=== PATIENT | female | born 1970 | race Caucasian/White ===

== ENCOUNTER 2016-07-31 16:20 | Inpatient (IN) | payer SELFPAY ==
[~2016-07-31] VITALS: Ht 154.9 cm; Wt 41.1 kg
[~2016-07-31 16:20] MED LIST: CLEO300C2 PO; DOXY100T PO
[2016-07-31 16:28] VITALS: BP 156/81; PULSE 107; RESP 16; TEMP 98.9; O2SAT 98
[2016-07-31] MEDS ORDERED: CELE20TA PO (16:32)
[2016-07-31 16:39] VITALS: O2SAT 97
--- NOTE | 2016-07-31 16:41 | PD ---
HPI Chief Complaint: Seizure Time Seen by Provider: 16:33 Travel History International Travel<30 days: No Contact w/Intl Traveler<30days: No Traveled to known affect area: No History of Present Illness HPI 45-year-old female brought in by ambulance after having had an apparent seizure that was witnessed by her friend. According to the front patient had a generalized seizure that lasted for possibly 5 minutes. The patient was slowly lowered to the ground. She did not sustain any injuries during this seizure. No tongue biting or urinary incontinence. She reports that she had a similar episode about 5 years ago. Chart review shows that in 2010 the patient had an emergency department visit for what was thought to be an alcohol withdrawal seizure. The patient never followed up for this as an outpatient. She admits to drinking about 5 beers daily, and states that she had 2 beers today, last drink was at 11 AM. No illicit drug use. No head neck or back pain. No fevers or recent illness. PFSH Past Medical History Depression: Yes Cardiovascular Problems: No Endocrine: No Genitourinary: No Immune Disorder: No Musculoskeletal: No Neurologic: No Respiratory: No Seizures: No Tetanus Vaccination: > 5 Years Influenza Vaccination: No ?: Not Past Surgical History Abdominal Surgery: Yes (appendix 13 yrs old) Appendectomy: Yes Other Surgery: Yes Social History Alcohol Use: Yes (5 BEERS DAILY) Tobacco Use: Yes (/4 PPD) Substance Use: No Allergies-Medications (Allergen,Severity, Reaction): Coded Allergies: No Known Allergies (Verified , 07/31/16) Reported Meds & Prescriptions Reported Meds & Active Scripts Active Reported Celexa (Citalopram Hydrobromide) 20 Mg Tab 20 Mg PO DAILY Review of Systems Except as stated in HPI: all other systems reviewed are Neg Physical Exam Narrative GENERAL: Well-developed, well-nourished, awake, alert, no apparent distress SKIN: Focused skin assessment warm/dry. No lacerations, abrasions, or ecchymosis. HEAD: Atraumatic. Normocephalic. EYES: Pupils equal and round. No scleral icterus. No injection or drainage. ENT: Mucous membranes pink and moist. NECK: Trachea midline. No JVD. No nuchal rigidity. CARDIOVASCULAR: Regular rate and rhythm. RESPIRATORY: No accessory muscle use. Clear to auscultation. Breath sounds equal bilaterally. GASTROINTESTINAL: Abdomen soft, non-tender, nondistended. MUSCULOSKELETAL: No obvious deformities. No clubbing. No cyanosis. No edema. NEUROLOGICAL: Awake and alert. No obvious cranial nerve deficits. Motor grossly within normal limits. Normal speech. PSYCHIATRIC: Appropriate mood and affect; insight and judgment normal. Data Data Last Documented VS Vital Signs Date Time Temp Pulse Resp B/P Pulse Ox O2 Delivery O2 Flow Rate FiO2 07/31/16 18:24 105 16 131/76 99 Room Air 07/31/16 16:28 98.9 Orders Complete Blood Count With Diff (07/31/16 16:33) Alcohol (Ethanol) (07/31/16 16:33) Drug Screen, Random Urine (07/31/16 16:33) Electrocardiogram (07/31/16 ) Ct Brain W/O Iv Contrast(Rout) (07/31/16 ) Blood Glucose (07/31/16 16:33) Ecg Monitoring (07/31/16 16:33) Iv Access Insert/Monitor (07/31/16 16:33) Oximetry (07/31/16 16:33) Comprehensive Metabolic Panel (07/31/16 16:33) Sodium Chloride 0.9% Flush (Ns Flush) (07/31/16 16:45) Urinalysis - C+S If Indicated (07/31/16 16:33) Beta Hcg (Quant/Titer) (07/31/16 16:33) Sodium Chlor 0.9% 1000 Ml Inj (Ns 1000 M (07/31/16 16:45) Lorazepam Inj (Ativan Inj) (07/31/16 18:30) Labs Laboratory Tests Test 07/31/16 07/31/16 16:40 17:30 White Blood Count 8.4 TH/MM3 Red Blood Count 4.06 MIL/MM3 Hemoglobin 14.2 GM/DL Hematocrit 40.5 % Mean Corpuscular Volume 99.7 FL Mean Corpuscular Hemoglobin 35.1 PG Mean Corpuscular Hemoglobin 35.2 % Concent Red Cell Distribution Width 11.6 % Platelet Count 221 TH/MM3 Mean Platelet Volume 6.6 FL Neutrophils (%) (Auto) 64.1 % Lymphocytes (%) (Auto) 19.2 % Monocytes (%) (Auto) 14.6 % Eosinophils (%) (Auto) 0.7 % Basophils (%) (Auto) 1.4 % Neutrophils # (Auto) 5.4 TH/MM3 Lymphocytes # (Auto) 1.6 TH/MM3 Monocytes # (Auto) 1.2 TH/MM3 Eosinophils # (Auto) 0.1 TH/MM3 Basophils # (Auto) 0.1 TH/MM3 CBC Comment DIFF FINAL Differential Comment Sodium Level 132 MEQ/L Potassium Level 3.3 MEQ/L Chloride Level 94 MEQ/L Carbon Dioxide Level 20.1 MEQ/L Anion Gap 18 MEQ/L Blood Urea Nitrogen 4 MG/DL Creatinine 0.72 MG/DL Estimat Glomerular Filtration 87 ML/MIN Rate Random Glucose 112 MG/DL Calcium Level 8.8 MG/DL Total Bilirubin 0.6 MG/DL Aspartate Amino Transf 231 U/L (AST/SGOT) Alanine Aminotransferase 151 U/L (ALT/SGPT) Alkaline Phosphatase 73 U/L Total Protein 7.7 GM/DL Albumin 3.9 GM/DL Human Chorionic Gonadotropin, 2 MIU/ML Quant Ethyl Alcohol Level LESS THAN 3 MG/DL Urine Color YELLOW Urine Turbidity CLEAR Urine pH 6.0 Urine Specific [place] 1.013 Urine Protein NEG mg/dL Urine Glucose (UA) NEG mg/dL Urine Ketones NEG mg/dL Urine Occult Blood SMALL Urine Nitrite NEG Urine Bilirubin NEG Urine Leukocyte Esterase NEG Urine RBC 0-3 /hpf Urine WBC 0-2 /hpf Urine Squamous Epithelial 0-5 /hpf Cells Urine Bacteria RARE /hpf Urine Mucus FEW /lpf Microscopic Urinalysis Comment CULT NOT INDICATED Urine Opiates Screen NEG Urine Barbiturates Screen NEG Urine Amphetamines Screen NEG Urine Benzodiazepines Screen NEG Urine Cocaine Screen NEG Urine Cannabinoids Screen NEG MDM Medical Decision Making Medical Screen Exam Complete: Yes Emergency Medical Condition: Yes Medical Record Reviewed: Yes Differential Diagnosis Seizure, alcohol withdrawal seizure, metabolic abnormality, intracranial abnormality Narrative Course Initial vital signs show heart rate 107, blood pressure 156/81, pulse ox 98% on room air, oral temp of 98.9F. CBC is essentially unremarkable. CMP shows sodium 132, potassium 3.3, chloride 94, bicarbonate 20.1, anion gap 18 , AST 231, ALT 151. Anion gap metabolic acidosis is likely secondary to lactic acidosis after seizure. Alcohol level is negative. Urine drug screen is negative for all drugs tested. UA is not suggestive of UTI. CT head: Normal exam Patient was made aware of all findings. She was given a liter normal saline, however remains tachycardic and slightly hypertensive. I believe that this was an alcohol withdrawal seizure. Her alcohol level today is 0. She states her last drink was around 11:00 this morning. She now tells me that she has been trying to cut back on her alcohol consumption. She'll be given a dose of Ativan and will be admitted for further treatment and evaluation of alcohol withdrawal seizure. Case discussed with hospitalist Dr. Cameron who will observe the patient overnight and place an order for [facility] protocol Diagnosis Primary Impression: Alcohol withdrawal seizure Qualified Code: F10.230 - Alcohol withdrawal seizure, uncomplicated Admitting Information Admitting Physician Requests: Observation Jose Trinidad MD Jul 31, 2016 16:41
[2016-07-31] MEDS ORDERED: SODIUM CHLORIDE 0.9% FLUSH 10 ML FLUSH IVF PRN (16:45)
[2016-07-31] MEDS ORDERED: SODIUM CHLOR 0.9% 1000 ML INJ 1,000 ML IV ONE (16:45)
[2016-07-31 16:50] LABS: AUTOMATED NEUTROPHIL # 5.4 TH/MM3 (1.8-7.7); BASOPHIL # 0.1 TH/MM3 (0-0.2); BASOPHIL % 1.4 % (0.0-2.0); EOSINOPHIL # 0.1 TH/MM3 (0-0.4); EOSINOPHIL % 0.7 % (0.0-4.0); HEMATOCRIT 40.5 % (35.0-46.0); HEMO FLAGS DIFF FINAL; LYMPH % 19.2 % (9.0-44.0); LYMPHOCYTE # 1.6 TH/MM3 (1.0-4.8); MEAN CELL VOLUME 99.7 FL (80.0-100.0); MEAN CORPUSCULAR HEMOGLOBIN 35.1 PG (27.0-34.0); MEAN CORPUSCULAR HGB CONC 35.2 % (32.0-36.0); MONO % 14.6 % (0.0-8.0); NEUT % 64.1 % (16.0-70.0); PLATELET COUNT 221 TH/MM3 (150-450); RED BLOOD COUNT 4.06 MIL/MM3 (4.00-5.30); RED CELL DISTRIBUTION WIDTH 11.6 % (11.6-17.2); WHITE BLOOD COUNT 8.4 TH/MM3 (4.0-11.0)
[2016-07-31 17:05] LABS: CHLORIDE 94 MEQ/L (98-107); POTASSIUM 3.3 MEQ/L (3.5-5.1); SODIUM (NA) 132 MEQ/L (136-145)
[2016-07-31 17:08] LABS: ANION GAP 18 MEQ/L (5-15); BICARBONATE 20.1 MEQ/L (21.0-32.0)
[2016-07-31 17:11] LABS: ALT (GPT) 151 U/L (10-53); AST (GOT) 231 U/L (15-37)
[2016-07-31 17:12] LABS: GLOMERULAR FILTRATION RATE 87 ML/MIN (>89)
[2016-07-31 17:13] LABS: TOTAL BILIRUBIN ADULT 0.6 MG/DL (0.2-1.0)
[2016-07-31 17:14] LABS: ALKALINE PHOSPHATASE 73 U/L (45-117); BLOOD UREA NITROGEN 4 MG/DL (7-18)
[2016-07-31 17:16] LABS: BETA HCG QUANT 2 MIU/ML (0-5)
[2016-07-31 17:40] LABS: BLOOD, URINE SMALL (NEG); GLUCOSE,URINE NEG (NEG); KETONE, URINE NEG (NEG); NITRITE,URINE NEG (NEG)
[2016-07-31 17:45] LABS: URINE COLOR YELLOW (YELLW/STRAW)
[2016-07-31 17:46] LABS: BACTERIA, URINE RARE /hpf; COMMENT (UR) CULT NOT INDICATED; CULTURE IF INDICATED CULT NOT INDICATED; MUCUS URINE FEW /lpf (OCC); RBC, URINE 0-3 /hpf (0-3); SQUAMOUS EPITHELIAL CELL URINE 0-5 /hpf (0-5); WBC, URINE 0-2 /hpf (0-5)
[2016-07-31 17:47] LABS: AMPHETAMINE, URINE NEG (NEG); BARBITURATES, URINE NEG (NEG); COCAINE, URINE NEG (NEG)
--- NOTE | 2016-07-31 18:21 | RADRPT ---
EXAM DATE/TIME: 07/31/2016 17:39 [place] COMPARISON: No previous studies available for comparison. INDICATIONS : Seizure. RADIATION DOSE: 63.28 CTDIvol (mGy) MEDICAL HISTORY : None SURGICAL HISTORY : None. ENCOUNTER: Initial ACUITY: 1 day PAIN SCALE: 0/10 LOCATION: cranial TECHNIQUE: Multiple contiguous axial images were obtained of the head. Using automated exposure control and adj ustment of the mA and/or kV according to patient size, radiation dose was kept as low as reasonably a chievable to obtain optimal diagnostic quality images. FINDINGS: CEREBRUM: The ventricles are normal for age. No evidence of midline shift, mass lesion, hemorrhage or acute in farction. No extra-axial fluid collections are seen. POSTERIOR FOSSA: The cerebellum and brainstem are intact. The 4th ventricle is midline. The cerebellopontine angle i s unremarkable. EXTRACRANIAL: The visualized portion of the orbits is intact. SKULL: The calvaria is intact. No evidence of skull fracture. CONCLUSION: Normal examination. Demetrio Corea MD on July 31, 2016 at 18:18 Board Certified Radiologist. This report was verified electronically.
[2016-07-31 18:24] VITALS: BP 131/76; PULSE 105; RESP 16; O2SAT 99
[2016-07-31] MEDS ORDERED: LORazepam 2 MG/ML VIAL IV PUSH ONE (18:30)
[2016-07-31] MEDS ORDERED: LORazepam 2 MG/ML VIAL IV PUSH PRN ×4 (18:45)
[2016-07-31] MEDS ORDERED: RESP: ALBUTEROL 2.5 MG/IPRATROPIUM 0.5 MG NEB (PRN) NEB (18:45)
[2016-07-31] MEDS ORDERED: LORazepam 1 MG TAB PO PRN (18:45)
[2016-07-31] MEDS ORDERED: LORazepam 2 MG TAB PO PRN (18:45)
[2016-07-31] MEDS ORDERED: cloNIDine HCL 0.1 MG TAB PO PRN (18:45)
[2016-07-31] MEDS ORDERED: FLUMAZENIL 0.5 MG/5 ML VIAL IV PUSH PRN (18:45)
[2016-07-31] MEDS ORDERED: SODIUM CHLORIDE 0.9% FLUSH 10 ML FLUSH IV FLUSH PRN (18:45)
[2016-07-31] MEDS ORDERED: ONDANSETRON HCL 4 MG/2 ML VIAL IV PRN (18:45)
[2016-07-31] MEDS: SODIUM CHLOR 0.9% 1000 ML INJ 1,000 ML IV SCH ×2 (19:05→21:26)
[2016-07-31 19:16] VITALS: BP 124/71; PULSE 97; RESP 16; O2SAT 99
[2016-07-31 20:24] VITALS: BP 126/73; PULSE 97; RESP 16; TEMP 98.7; O2SAT 96
[2016-07-31] MEDS: SODIUM CHLORIDE 0.9% FLUSH 10 ML FLUSH IV FLUSH SCH (21:00)
[2016-07-31 23:25] VITALS: BP 129/69; PULSE 92; RESP 16; TEMP 98.5; O2SAT 97
[2016-08-01] VITALS: BP 130/75; PULSE 94; RESP 16; TEMP 98.6; O2SAT 96
[2016-08-01 03:00] VITALS: BP 125/69; PULSE 85; RESP 16; TEMP 98.5; O2SAT 98
[2016-08-01 06:02] LABS: ALKALINE PHOSPHATASE 57 U/L (45-117); ALT (GPT) 115 U/L (10-53); ANION GAP 7 MEQ/L (5-15); AST (GOT) 151 U/L (15-37); BICARBONATE 25.7 MEQ/L (21.0-32.0); BLOOD UREA NITROGEN 3 MG/DL (7-18); CHLORIDE 110 MEQ/L (98-107); GLOMERULAR FILTRATION RATE 139 ML/MIN (>89); POTASSIUM 3.6 MEQ/L (3.5-5.1); SODIUM (NA) 143 MEQ/L (136-145); TOTAL BILIRUBIN ADULT 0.9 MG/DL (0.2-1.0)
--- NOTE | 2016-08-01 07:36 | HHI.HP ---
[facility] No Primary Care Physician Admission Diagnosis Alcohol withdrawal seizure Diagnoses: (1) Alcohol withdrawal seizure Diagnosis: Principal Chief Complaint: Seizure Travel History International Travel<30 Days: No Contact w/Intl Traveler <30 Da: No Traveled to Known Affected Are: No History of Present Illness Written by Lobo Ridley, acting as scribe for Dr. Cameron on 08/01/16 at 07: 27. 45-year-old female with known history of alcoholism who presented to the hospital by ambulance because of seizure. Patient states that over the last week she has been trying to stop drinking alcohol and has been weaning herself off one beer per day. Patient indicates that she usually drinks over 8 beers daily and she is now down to 4 beers daily. She had one beer at 11 AM yesterday morning and went to lunch with some friends and exiting she remembers is being in the ambulance. ER documentation indicates that the patient was witnessed by a friend to have a generalized seizure that lasted probably 5 minutes. She denied any loss of bowel or bladder control. She indicates that she may have a bite on her tongue. She indicates that she had an episode like this a few years ago when she was trying to get off alcohol at that time. Patient has had a previous hospitalization in 2009 for syncopal episode which could have been alcohol related also. She underwent workup in the hospital, EEG which was normal. Patient indicates that she did have a proctoscopy 5 months sobriety a few years ago, however she has returned to drinking. At the present time patient is doing well. She is alert and orientated. She does want to quit drinking. Discussed with patient [facility] treatment, however she would prefer not to go that route. She would prefer to continue outpatient treatment at this time. Review of Systems Constitutional: DENIES: Diaphoretic episodes, Fatigue, Fever, Weight gain, Weight loss, Chills, Dizziness, Change in appetite, Night Sweats Endocrine: DENIES: Abnorml menstrual pattern, Heat/cold intolerance, Polydipsia , Polyuria, Polyphagia Eyes: DENIES: Blurred vision, Diplopia, Eye inflammation, Eye pain, Vision loss , Photosensitivity, Double Vision Ears, nose, mouth, throat: DENIES: Hearing loss, Nasal discharge, Throat pain, Ear Pain, Running Nose, Sinus Pain Respiratory: DENIES: Apneas, Cough, Snoring, Wheezing, Hemoptysis, Sputum production, Shortness of breath Cardiovascular: DENIES: Chest pain, Palpitations, Syncope, Dyspnea on Exertion , Lower Extremity Edema, Orthopnea Gastrointestinal: DENIES: Abdominal pain, Black stools, Bloody stools, Constipation, Diarrhea, Nausea, Vomiting, Difficulty Swallowing, Anorexia Genitourinary: DENIES: Abnormal vaginal bleeding, Dysmenorrhea, Dyspareunia, Sexual dysfunction, Urinary frequency, Urinary incontinence, Urgency, Hematuria , Dysuria, Nocturia, Vaginal discharge Musculoskeletal: DENIES: Joint pain, Muscle aches, Stiffness, Joint Swelling, Back pain, Neck pain Integumentary: DENIES: Abnormal pigmentation, Pruritus, Rash, Nail changes, Breast masses, Breast skin changes, Nipple discharge Hematologic/lymphatic: DENIES: Bruising, Lymphadenopathy Immunologic/allergic: DENIES: Eczema, Urticaria Neurologic: COMPLAINS OF: Seizures, DENIES: Abnormal gait, Headache, Localized weakness, Paresthesias, Speech Problems, Tremor, Poor Balance Psychiatric: COMPLAINS OF: Anxiety, Depression, DENIES: Confusion, Mood changes, Agitation, Suicidal Ideation, Homicidal Ideation Past Family Social History Past Medical History Alcoholism Anxiety and depression Past Surgical History Appendectomy Reported Medications Reported Meds & Active Scripts Active Reported Celexa (Citalopram Hydrobromide) 20 Mg Tab 20 Mg PO DAILY Allergies: Coded Allergies: No Known Allergies (Verified , 07/31/16) Family History Reviewed is significant for father still alive with pancreatic cancer in remission. Mother is in good health Social History Patient smokes 1/4 pack a cigarettes a day since she was 15 years old. Patient does drink greater than 8 beers per day and is now down to 4 beers a day. She does use marijuana occasionally Physical Exam Vital Signs Vital Signs Date Time Temp Pulse Resp B/P Pulse Ox O2 Delivery O2 Flow Rate FiO2 08/01/16 03:00 98.5 85 16 125/69 98 08/01/16 00:00 98.6 94 16 130/75 96 07/31/16 23:25 98.5 92 16 129/69 97 07/31/16 20:36 99 16 96 07/31/16 20:24 98.7 97 16 126/73 96 07/31/16 19:16 97 16 124/71 99 Room Air 07/31/16 18:24 105 16 131/76 99 Room Air 07/31/16 16:39 97 Room Air 07/31/16 16:32 07/31/16 16:28 98.9 107 16 156/81 98 Room Air 07/31/16 16:28 Room Air Physical Exam GENERAL: Well-developed, well-nourished, in no acute distress. alert and orientated HEENT: Head is normocephalic without any lesions or masses noted. Facial features are symmetric. Eyes: Pupils equal round reactive to light. Extraocular muscles are intact. Conjunctivae were clear. Oropharyngeal: Pharynx without any erythema edema. Tongue is midline without deviation. Buccal mucosa is moist without any masses or lesions NECK: Supple without any masses. Trachea midline no deviation. No JVD, no bruits are appreciated CARDIAC: Regular rhythm, regular rate. S1/S2 are heard. No murmurs gallops or rubs. LUNGS: Clear to auscultation bilaterally. No wheeze, rhonchi or rales. No use of accessory muscles on inspiration or expiration. ABDOMEN: Soft, nontender. Nondistended. Bowel sounds heard in all 4 quadrants. No organomegaly or masses. Negative rebound, negative guarding EXTREMITIES: No edema, pulses are equal bilaterally. No cyanosis or clubbing NEUROLOGY: Mood and affect appear appropriate. Cranial nerves II through XII grossly intact. Muscle strength 5/5 in upper and lower extremities bilaterally. Deep tendon reflexes are 2+ in upper and lower extremities bilaterally. Laboratory Laboratory Tests Test 07/31/16 07/31/16 08/01/16 16:40 17:30 05:08 White Blood Count 8.4 Red Blood Count 4.06 Hemoglobin 14.2 Hematocrit 40.5 Mean Corpuscular Volume 99.7 Mean Corpuscular Hemoglobin 35.1 Mean Corpuscular Hemoglobin 35.2 Concent Red Cell Distribution Width 11.6 Platelet Count 221 Mean Platelet Volume 6.6 Neutrophils (%) (Auto) 64.1 Lymphocytes (%) (Auto) 19.2 Monocytes (%) (Auto) 14.6 Eosinophils (%) (Auto) 0.7 Basophils (%) (Auto) 1.4 Neutrophils # (Auto) 5.4 Lymphocytes # (Auto) 1.6 Monocytes # (Auto) 1.2 Eosinophils # (Auto) 0.1 Basophils # (Auto) 0.1 CBC Comment DIFF FINAL Differential Comment Sodium Level 132 143 Potassium Level 3.3 3.6 Chloride Level 94 110 Carbon Dioxide Level 20.1 25.7 Anion Gap 18 7 Blood Urea Nitrogen 4 3 Creatinine 0.72 0.48 Estimat Glomerular Filtration 87 139 Rate Random Glucose 112 79 Calcium Level 8.8 8.2 Total Bilirubin 0.6 0.9 Aspartate Amino Transf 231 151 (AST/SGOT) Alanine Aminotransferase 151 115 (ALT/SGPT) Alkaline Phosphatase 73 57 Total Protein 7.7 6.2 Albumin 3.9 3.0 Human Chorionic Gonadotropin, 2 Quant Ethyl Alcohol Level LESS THAN 3 Urine Color YELLOW Urine Turbidity CLEAR Urine pH 6.0 Urine Specific [place] 1.013 Urine Protein NEG Urine Glucose (UA) NEG Urine Ketones NEG Urine Occult Blood SMALL Urine Nitrite NEG Urine Bilirubin NEG Urine Leukocyte Esterase NEG Urine RBC 0-3 Urine WBC 0-2 Urine Squamous Epithelial 0-5 Cells Urine Bacteria RARE Urine Mucus FEW Microscopic Urinalysis Comment CULT NOT INDICATED Urine Opiates Screen NEG Urine Barbiturates Screen NEG Urine Amphetamines Screen NEG Urine Benzodiazepines Screen NEG Urine Cocaine Screen NEG Urine Cannabinoids Screen NEG Result Diagram: 07/31/16 1640 08/01/16 0508 Imaging Last Impressions Head CT 07/31/16 0000 Signed Impressions: Service Date/Time: Friday, July 31, 2016 17:39 - CONCLUSION: Normal examination. 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 I, Dr. Brando Cameron personally performed the history, physical exam, and medical decision making; and confirmed the accuracy of the information in the transcribed note. Authenticated by Dr. Brando Cameron on 08/01/16 at 07:27. Code Status Full code Discussed Condition With Patient, ED physician Physician Certification 2 Midnight Certification Type: Admission for Inpatient Services Order for Inpatient Services The services are ordered in accordance with Medicare regulations or non- Medicare payer requirements, as applicable. In the case of services not specified as inpatient-only, they are appropriately provided as inpatient services in accordance with the 2-midnight benchmark. Estimated LOS (days): 2 days is the estimated time the patient will need to remain in the hospital, assuming treatment plan goals are met and no additional complications. Post-Hospital Plan: Not yet determined Problem Qualifiers (1) Alcohol withdrawal seizure: Qualified Code: F10.230 - Alcohol withdrawal seizure, uncomplicated Lobo Ridley Aug 01, 2016 07:35 Brando Cameron MD Aug 01, 2016 08:10
[2016-08-01 08:00] VITALS: BP 131/73; PULSE 89; RESP 16; TEMP 98.8; O2SAT 98
[2016-08-01] MEDS: SODIUM CHLORIDE 0.9% FLUSH 10 ML FLUSH IV FLUSH SCH (08:19)
[2016-08-01] MEDS ORDERED: CITALOPRAM HYDROBROMIDE 20 MG TAB PO SCH (09:00)
[2016-08-01] MEDS ORDERED: MULTIVITAMINS/MINERALS THERAPEUTIC TAB PO SCH (09:00)
[2016-08-01] MEDS ORDERED: FOLIC ACID 1 MG TAB PO SCH (09:00)
[2016-08-01] MEDS ORDERED: THIAMINE HCL 100 MG TAB PO SCH (09:00)
[2016-08-01] MEDS ORDERED: PANTOPRAZOLE SOD 40 MG DELAYED RELEASE TAB PO SCH (09:00)
[2016-08-01] MEDS ORDERED: CHLO10CA5 PO (09:48)
[2016-08-01] MEDS ORDERED: GNP100TA3 PO (09:49)
--- NOTE | 2016-08-01 09:50 | HHI.PR ---
Addendum to Inpatient Note Addendum Reason: Additional Documentation Additional Information Patient's condition tremendously improved since admission, denies any seizure activity since admission. EEG negative. Therefore she'll be discharged home Discharge patient to home Condition on discharge: Improved Regular Diet as tolerated Ad Dixie activity Rx written: Librium 10 mg 3 times a day#3; thiamine 100 mg daily Follow-up with primary care physician in one week Brando Cameron MD Aug 01, 2016 09:50
[2016-08-01 12:00] VITALS: BP 139/78; PULSE 96; RESP 18; TEMP 98.9; O2SAT 97
--- NOTE | 2016-08-01 14:15 | EKG ---
Date Performed: 07/31/2016 Time Performed: 16:41:41 PTAGE: 45 years EKG: SINUS TACHYCARDIA POSSIBLE RIGHT VENTRICULAR CONDUCTION DELAY ABNORMAL RHYTHM ECG Compared to PREVIOUS TRACING , the sinus tachycardia is new. PREVIOUS TRACIN05/29/2009 07.18 DOCTOR: Zenaida Zimmerman Interpretating Date/Time 08/01/2016 14:14:57
--- NOTE | 2016-08-02 07:30 | MG ---
cc: ADÁN MATT MD Lab No: [id number] Date: 08/01/2016 Age: 45 Sex: F Race: __ DATE OF 1970 INDICATIONS This is a 45 year-old with a history of possible seizure. DESCRIPTION Posterior rhythm demonstrates 7-9 Hz alpha activity, 28-40 microvolts. Good anterior-posterior gradient. Beta in the frontal channels. Good EEG variability reactivity. Appropriate attenuation of background. Reasonable driving with photic stimulation. Single lead EKG showing sinus rhythm. INTERPRETATION Normal awake EEG. Clinical correlation. MD ADWOA Schafer/SPENCER /9:51 PM /7:31 AM
== END 2016-08-01 13:25 | disposition home or self-care (01) | DRG 101 ==
LOC: PHED 16:20 → PHEDA 18:41 → OBSVTOIN 18:45 → PH3A 20:42
PROVIDERS: ADMIT Hospitalist; ATTEND Hospitalist
DX: G40.89 Other seizures (principal); E87.2 Acidosis; K70.9 Alcoholic liver disease, unspecified; E87.1 Hypo-osmolality and hyponatremia; F10.230 Alcohol dependence with withdrawal, uncomplicated; F32.9 Major depressive disorder, single episode, unspecified; F17.210 Nicotine dependence, cigarettes, uncomplicated; F41.9 Anxiety disorder, unspecified; E87.6 Hypokalemia; R00.0 Tachycardia, unspecified
CPT/HCPCS: 70450; 80053; 80074; 80307; 81001; 82948; 84702; 85025; 93005; 95819; 96360; 96361; J2060; J7030